=== PATIENT | female | born 2005 | race Caucasian/White ===

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

== ENCOUNTER → 2024-03-31 08:50 | Outpatient (BNVA) | payer MEDICAID, SELFPAY | PROVIDERS: PCP Nurse Practitioner Family; Visit Provider Nurse Practitioner Women's Health | DX: N92.6 Irregular menstruation, unspecified (principal); Z32.01 Encounter for pregnancy test, result positive | CPT/HCPCS: 81025; 84702; 86850; 86900 ==

== ENCOUNTER → 2024-04-11 13:23 | Outpatient (BNVA) | payer MEDICAID, SELFPAY | PROVIDERS: PCP Nurse Practitioner Family; Visit Provider Nurse Practitioner Women's Health | DX: Z36.87 Encounter for antenatal screening for uncertain dates (principal); R88.8 Abnormal findings in other body fluids and substances; Z3A.01 Less than 8 weeks gestation of pregnancy | CPT/HCPCS: 76817 ==

== ENCOUNTER → 2024-05-09 08:00 | Outpatient (BNVA) | payer MEDICAID, SELFPAY | PROVIDERS: PCP Nurse Practitioner Family; Visit Provider Nurse Practitioner Women's Health | DX: Z34.90 Encounter for supervision of normal pregnancy, unspecified, unspecified trimester (principal) | CPT/HCPCS: 76801; 80307; 84315; 85025; 86592; 86762; 86803; 86850; 86900; 87086; 87340; 87491; 87591; 87806 ==

== ENCOUNTER → 2024-05-22 10:30 | Outpatient (BNVA) | payer MEDICAID, BC, SELFPAY | PROVIDERS: PCP Nurse Practitioner Family; Visit Provider Obstetrics & Gynecology | DX: Z34.90 Encounter for supervision of normal pregnancy, unspecified, unspecified trimester (principal) | CPT/HCPCS: 82950; 84315; 87624 ==

== ENCOUNTER 2024-06-07 19:18 | Emergency (ER) | payer BC, MEDICAID, SELFPAY ==
[2024-06-07 19:26] VITALS: BP 109/46; PULSE 95; RESP 16; TEMP 36.7; O2SAT 100; BMI 45.7
[2024-06-07 20:00] VITALS: BP 107/76; PULSE 94; O2SAT 100
[2024-06-07 20:00] LABS: Basophils % 0.3 %; Eosinophils # 0.1 10^3/uL (0.0-0.8); Eosinophils % 1.2 %; Lymphocytes # 2.6 10^3/uL (0.8-4.8); Lymphocytes % 24.3 %; Mean Corpuscular HGB Conc 32.1 g/dL (30-55); Mean Corpuscular Hemoglobin 28.3 pg (27-33); Mean Corpuscular Volume 88.2 fl (85-98); Mean Platelet Volume 9.2 fL (7.4-10.4); Monocytes # 0.6 10^3/uL (0.2-0.9); Monocytes % 5.2 %; Neutrophils # 7.28 10^3/uL (1.8-7.7); Neutrophils % 68.4 %; Nucleated Red Blood Cells % 0 %; Platelet Count 325 10^3/cmm (157-399); Red Blood Count 4.42 10^6/uL (3.85-5.65); Red Cell Distribution Width 13.2 % (12.1-15.1); White Blood Count 10.64 10^3/uL (3.29-11.43)
--- NOTE | 2024-06-07 20:08 | W.ED.PREGNAN ---
HPI - General: Chief complaint: Vaginal Bleeding Stated complaint: 16 WKS Preg\Spotting Time Seen by Provider: 06/07/24 19:37 Source: patient Mode of arrival: ambulatory Limitations: no limitations History of Present Illness: 19-year-old female who is currently 16 weeks states she has had some slight spotting today. States its mainly when she wipes denies passing any large amounts of blood or clots. She has had some mild abdominal cramping denies any severe pain. States she has had a subchorionic hemorrhage with this . She denies any vomiting or diarrhea. Associated symptoms: Deny abdominal pain, headache(s), nausea or vomiting Related Data Home Medications Medication Instructions Recorded Confirmed PNV 153-FA 400 mcg-om3 35 mg-dha tab PO 03/31/24 05/22/24 25 mg-epa 5 mg-fish oil chew tablet ( Gummies) Allergies Allergy/AdvReac Type Severity Reaction Status Date / Time erythromycin base Allergy Severe redness, Verified 05/22/24 09:27 swelling Review of Systems Const: Denies: fever(s), chills, body aches or change in appetite ENMT: Denies: throat pain or dental pain Card: Denies: chest pain Resp: Denies: dyspnea GI: Denies: abdominal pain, nausea, vomiting or diarrhea : Reports: vaginal bleeding Musc: Denies: neck pain or back pain Skin/Breast: Denies: rash Neuro: Denies: headache(s) [facility] ED PFSH: Medical History Obesity (BMI 30-39.9) Insertion of implantable subdermal contraceptive No pertinent past medical history neghx: htn,dm,thyroid,dvt/pe PCP: Chelsy Zimmer Surgical History H/O knee surgery [facility] in [place], [place] Family History Sister Family history of thyroid problem Half sister Other Adopted Social History Smoking and tobacco/nicotine status: never used tobacco/nicotine Physical Exam Const: COMMON NORMALS: no acute distress, patient oriented x3 and healthy appearing HENMT: COMMON NORMALS: normocephalic and atraumatic HEAD & SCALP: normocephalic and atraumatic Eye: COMMON NORMALS: conjunctivae normal CONJUNCTIVA: Yes conjunctivae normal Neck/C-Spine: COMMON NORMALS: full ROM and supple Chest: COMMONS NORMALS: normal inspection of the chest Resp: COMMON NORMALS: normal respiratory effort GI: COMMON NORMALS: Normal to inspection, nondistended, normoactive bowel sounds present and non-tender Extremity: COMMON NORMALS: normal to inspection and full ROM Neuro: COMMON NORMALS: patient oriented x3, moves all extremities and no focal motor deficits Psych: COMMON NORMALS: mental status grossly normal, Normal thought process present and cooperative THOUGHT PROCESS: Normal thought process present Skin: COMMON NORMALS: no rashes or lesions noted and no wounds GENERAL SKIN EXAM: no rashes or lesions noted Course Vital Signs: Vital signs: Vital Signs Temperature 98.0 F 06/07/24 19:26 Pulse Rate 107 H 06/07/24 20:44 Respiratory Rate 16 06/07/24 19:26 Blood Pressure 115/89 06/07/24 20:44 Pulse Oximetry 98 06/07/24 20:44 Oxygen Delivery Me thod Room Air 06/07/24 20:00 MDM - OB/Uterine Contractions Medical Decision Making Patient presents here with a threatened miscarriage bedside ultrasound showed IUP consistent dates heart rate 146 she has been well-appearing here with minimal bleeding she is stable for discharge follow-up with OB return if worsening. Medical Records I reviewed the patient's medical records. Lab Data I reviewed the patient's lab results. 06/07/24 19:55 Laboratory Results WBC 10.64 10^3/uL (3.29-11.43) 06/07/24 19:55 RBC 4.42 10^6/uL (3.85-5.65) 06/07/24 19:55 Hgb 12.50 g/dL (11.27-16.99) 06/07/24 19:55 Hct 39.0 % (36-47) 06/07/24 19:55 MCV 88.2 fl (85-98) 06/07/24 19:55 MCH 28.3 pg (27-33) 06/07/24 19:55 MCHC 32.1 g/dL (30-55) 06/07/24 19:55 RDW 13.2 % (12.1-15.1) 06/07/24 19:55 Plt Count 325 10^3/cmm (157-399) 06/07/24 19:55 MPV 9.2 fL (7.4-10.4) 06/07/24 19:55 Neut % (Auto) 68.4 % 06/07/24 19:55 Lymph % (Auto) 24.3 % 06/07/24 19:55 [place] % (Auto) 5.2 % 06/07/24 19:55 Eos % (Auto) 1.2 % 06/07/24 19:55 Baso % (Auto) 0.3 % 06/07/24 19:55 Neut # (Auto) 7.28 10^3/uL (1.8-7.7) 06/07/24 19:55 Lymph # (Auto) 2.6 10^3/uL (0.8-4.8) 06/07/24 19:55 [place] # (Auto) 0.6 10^3/uL (0.2-0.9) 06/07/24 19:55 Eos # (Auto) 0.1 10^3/uL (0.0-0.8) 06/07/24 19:55 Baso # (Auto) 0.0 10^3/uL (0.0-0.1) 06/07/24 19:55 Nucleated RBC % (auto) 0 % 06/07/24 19:55 Nucleated RBCs # 0.0 /100WBC 06/07/24 19:55 Ser , Semi-Qnt 13828.00 mIU/mL 06/07/24 19:55 No radiology studies performed this visit Discharge Plan Discharge Patient Disposition: Home Clinical Impression: Threatened miscarriage Condition: Stable Prescriptions: No Action Gummies 400 mcg-35 mg- 25 mg-5 mg tablet,chewable PO Discharge Orders: Discharge ED (Routine); Ordered 06/07/24 Ordered By: Margaret Jason Referrals: Orlando Bradley MD [Physician] - 1-3 days Zimmer,DILCIA Whaley [Primary Care Provider] - Discharge Diet: Advance as tolerated Discharge Activity: Resume usual activity Patient Instructions: Threatened Miscarriage (ED) Stand Alone Forms: Work/School Release Coding Level of Care Code ED Poultry Culler for Chg Fwd
[2024-06-07 20:30] VITALS: BP 115/79; PULSE 93; O2SAT 100
[2024-06-07 20:44] VITALS: BP 115/89; PULSE 107; O2SAT 98
== END 2024-06-07 20:46 | disposition home or self-care (01) ==
PROVIDERS: Emergency Provider Emergency Medicine; PCP Nurse Practitioner Family
DX: O20.0 Threatened abortion (principal); Z3A.16 16 weeks gestation of pregnancy
CPT/HCPCS: 84702; 85025; 99283

== ENCOUNTER 2024-09-11 10:53 | Emergency (ER) | payer BC, MEDICAID, SELFPAY ==
--- NOTE | 2024-09-11 10:59 | W.ED.GENADLT ---
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 This was witnessed by a coworker and she was actually caught she never actually fell or hit her head. She is unsure if she completely lost consciousness. She is currently approximately 28 weeks gestation. She is complaining of intermittent spasming like pain in the right side of her uterus. She denies any recent dysuria urgency or frequency or illness. No vomiting or diarrhea. She has not had any vaginal discharge or fluid leakage. No hematuria no vaginal bleeding. Patient was treated for strep a few weeks ago completed the course of antibiotics and is asymptomatic at this time. Associated symptoms: Deny chest pain, dyspnea or rash Related Data Home Medications Medication Instructions Recorded Confirmed PNV 153-FA 400 mcg-om3 35 mg-dha tab PO 03/31/24 08/07/24 25 mg-epa 5 mg-fish oil chew tablet ( Gummies) Previous Rx's Medication Instructions Recorded dbrzihheir-nzsrfddvidjzr-nmxgecpx 1 cap PO Q8H PRN pain #30 caps 06/20/24 50 mg-300 mg-40 mg capsule (Fioricet) Allergies Allergy/AdvReac Type Severity Reaction Status Date / Time erythromycin base Allergy Severe redness, Verified 08/07/24 11:48 swelling Review of Systems Const: Denies: fever(s) or chills Card: Denies: chest pain Resp: Denies: dyspnea GI: Denies: abdominal pain : Denies: dysuria, urinary frequency or urinary urgency Musc: Denies: neck pain or back pain Skin/Breast: Denies: rash PFSH ED PFSH: Medical History Obesity (BMI 30-39.9) Insertion of implantable subdermal contraceptive No pertinent past medical history neghx: htn,dm,thyroid,dvt/pe PCP: Chelsy Zimmer Surgical History H/O knee surgery [facility] in [place], [place] Family History Sister Family history of thyroid problem Half sister Other Adopted Social History Smoking and tobacco/nicotine status: never used tobacco/nicotine Physical Exam Const: COMMON NORMALS: no acute distress GENERAL APPEARANCE: cooperative and comfortable ORIENTATION/CONSCIOUSNESS: Yes awake, Yes oriented to person, Yes oriented to place and Yes oriented to time HENMT: COMMON NORMALS: normocephalic, atraumatic and hearing grossly normal bilaterally HEAD & SCALP: normocephalic and atraumatic Resp: COMMON NORMALS: normal respiratory effort, No retractions, No use of accessory muscles and clear to auscultation bilaterally AUSCULTATION: clear to auscultation bilaterally Cardio: COMMON NORMALS: regular rate, regular rhythm and No murmurs present (Cardio) RATE: regular rate RHYTHM: regular rhythm GI: COMMON NORMALS: Soft to palpation and No hepatosplenomegaly present AUSCULTATION: Yes normoactive bowel sounds PALPATION: Yes Soft to palpation, No Tenderness to palpation present (GI), No Guarding due to palpation present (GI) and Yes No hepatosplenomegaly present Extremity: COMMON NORMALS: normal to inspection, capillary refill normal, no clubbing, cyanosis or edema, no calf tenderness and no pedal edema Neuro: SENSORIUM/ORIENTATION: Yes oriented to person, Yes oriented to place and Yes oriented to time Skin: COMMON NORMALS: no rashes or lesions noted GENERAL SKIN EXAM: no rashes or lesions noted Course Vital Signs: Vital signs: Vital Signs Pulse Rate 116 H 09/11/24 11:10 Respiratory Rate 16 09/11/24 11:10 Blood Pressure 129/81 09/11/24 11:10 Pulse Oximetry 99 09/11/24 11:10 Oxygen Delivery Me thod Room Air 09/11/24 11:10 MDM - General Adult Medical Decision Making Suspect she had a vasovagal episode concerned about the intermittent abdominal crampy pain localized to the right side of the apex of her uterus. Initial labs ordered CBC CMP and a UA. Will have patient brought to OB for monitoring. Lab Data 09/11/24 11:07 09/11/24 11:07 Laboratory Results WBC 12.39 10^3/uL (3.29-11.43) H 09/11/24 11:07 RBC 4.32 10^6/uL (3.85-5.65) 09/11/24 11:07 Hgb 11.80 g/dL (11.27-16.99) 09/11/24 11:07 Hct 37.5 % (36-47) 09/11/24 11:07 MCV 86.8 fl (85-98) 09/11/24 11:07 MCH 27.3 pg (27-33) 09/11/24 11:07 MCHC 31.5 g/dL (30-55) 09/11/24 11:07 RDW 14.1 % (12.1-15.1) 09/11/24 11:07 Plt Count 302 10^3/cmm (157-399) 09/11/24 11:07 MPV 9.2 fL (7.4-10.4) 09/11/24 11:07 Neut % (Auto) 75.6 % 09/11/24 11:07 Lymph % (Auto) 18.8 % 09/11/24 11:07 [place] % (Auto) 4.0 % 09/11/24 11:07 Eos % (Auto) 0.6 % 09/11/24 11:07 Baso % (Auto) 0.3 % 09/11/24 11:07 Neut # (Auto) 9.35 10^3/uL (1.8-7.7) H 09/11/24 11:07 Lymph # (Auto) 2.3 10^3/uL (0.8-4.8) 09/11/24 11:07 [place] # (Auto) 0.5 10^3/uL (0.2-0.9) 09/11/24 11:07 Eos # (Auto) 0.1 10^3/uL (0.0-0.8) 09/11/24 11:07 Baso # (Auto) 0.0 10^3/uL (0.0-0.1) 09/11/24 11:07 Nucleated RBC % (auto) 0 % 09/11/24 11:07 Nucleated RBCs # 0.0 /100WBC 09/11/24 11:07 Sodium 134 mmol/L (136-145) L 09/11/24 11:07 Potassium 4.2 mmol/L (3.5-5.1) 09/11/24 11:07 Chloride 102 mmol/L (98-107) 09/11/24 11:07 Carbon Dioxide 18 mmol/L (22-29) L 09/11/24 11:07 Anion Gap 18.2 (5-19) 09/11/24 11:07 BUN 12 mg/dL (6-20) 09/11/24 11:07 Creatinine 0.5 mg/dL (0.5-0.9) 09/11/24 11:07 GFR Calculation 155.7 mL/min (90-130) H 09/11/24 11:07 Glucose 100 mg/dL (65-115) 09/11/24 11:07 Calculated Osmolality 278 mOsm/kg (285-295) L 09/11/24 11:07 Calcium 9.1 mg/dL (8.5-10.5) 09/11/24 11:07 Total Bilirubin 0.2 mg/dL (0.15-1.2) 09/11/24 11:07 AST 8 U/L (0-32) 09/11/24 11:07 ALT 9 U/L (0-33) 09/11/24 11:07 Alkaline Phosphatase 106 U/L (35-105) H 09/11/24 11:07 Total Protein 7.1 g/dL (6.6-8.7) 09/11/24 11:07 Albumin 3.6 g/dL (3.5-5.2) 09/11/24 11:07 Globulin 3.5 g/dL (1.3-4.6) 09/11/24 11:07 No radiology studies performed this visit Discharge Plan Discharge Patient Disposition: Home Clinical Impression: Orthostatic syncope, Second trimester Condition: Stable Prescriptions: No Action Gummies 400 mcg-35 mg- 25 mg-5 mg tablet,chewable PO [id number]-frqcaeifyztjw-vagi [Fioricet] 50-300-40 mg capsule 1 cap PO Q8H PRN (Reason: pain) Qty: 30 0RF Discharge Orders: Discharge ED (Routine); Ordered 09/11/24 Ordered By: Kevin Arrington Referrals: [employer], [Primary Care Provider] - Discharge Diet: Usual diet Discharge Activity: Resume usual activity Patient Instructions: Opioid Safety, Pain Management Activity Restrictions/Additional Instructions: Thank you for choosing [facility] for your healthcare needs today. It is very important that you follow up as instructed or that you return to the Emergency Department should you have concerns or if your condition changes or worsens in any way. You were seen after a near syncopal episode likely due to vasovagal episode in the emergency room. You are being discharged from the emergency room for further evaluation in the OB department for intermittent abdominal pain that are suspicious for contractions. 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
[2024-09-11 11:10] VITALS: BP 129/81; PULSE 116; RESP 16; O2SAT 99
[2024-09-11 11:10] LABS: Basophils % 0.3 %; Eosinophils # 0.1 10^3/uL (0.0-0.8); Eosinophils % 0.6 %; Hematocrit 37.5 % (36-47); Lymphocytes # 2.3 10^3/uL (0.8-4.8); Lymphocytes % 18.8 %; Mean Corpuscular HGB Conc 31.5 g/dL (30-55); Mean Corpuscular Hemoglobin 27.3 pg (27-33); Mean Corpuscular Volume 86.8 fl (85-98); Mean Platelet Volume 9.2 fL (7.4-10.4); Monocytes # 0.5 10^3/uL (0.2-0.9); Neutrophils # 9.35 10^3/uL (1.8-7.7); Neutrophils % 75.6 %; Nucleated Red Blood Cells % 0 %; Platelet Count 302 10^3/cmm (157-399); Red Blood Count 4.32 10^6/uL (3.85-5.65); Red Cell Distribution Width 14.1 % (12.1-15.1); White Blood Count 12.39 10^3/uL (3.29-11.43)
[2024-09-11 11:26] LABS: Alanine Aminotransferase 9 U/L (0-33); Albumin Level 3.6 g/dL (3.5-5.2); Alkaline Phosphatase 106 U/L (35-105); Anion Gap 18.2 (5-19); Aspartate Amino Transferase 8 U/L (0-32); Blood Urea Nitrogen 12 mg/dL (6-20); Calcium 9.1 mg/dL (8.5-10.5); Carbon Dioxide 18 mmol/L (22-29); Chloride 102 mmol/L (98-107); Globulin 3.5 g/dL (1.3-4.6); Glomerular Filtration Rate 155.7 mL/min (90-130); Glucose 100 mg/dL (65-115); Osmolality Calculated 278 mOsm/kg (285-295); Potassium 4.2 mmol/L (3.5-5.1); Sodium 134 mmol/L (136-145); Total Bilirubin 0.2 mg/dL (0.15-1.2); Total Protein 7.1 g/dL (6.6-8.7)
== END 2024-09-11 11:18 | disposition home or self-care (01) ==
PROVIDERS: Emergency Provider Family Medicine
DX: R55 Syncope and collapse (principal)
CPT/HCPCS: 80053; 85025; 99283

== ENCOUNTER 2024-09-11 11:05 | Outpatient (CLI) | payer BC, MEDICAID, SELFPAY ==
[2024-09-11 11:18] VITALS: BP 111/63; PULSE 97; BMI 46.6
[2024-09-11 11:38] VITALS: BP 113/75; PULSE 99
[2024-09-11 11:58] VITALS: BP 117/65; PULSE 86
[2024-09-11 12:18] VITALS: BP 112/66; PULSE 91
== END 2024-09-11 12:35 | disposition home or self-care (01) ==
LOC: OPOB 11:07 → OBGYN 11:08
PROVIDERS: Absent Provider Obstetrics & Gynecology; Family Provider Obstetrics & Gynecology; Visit Provider Obstetrics & Gynecology
DX: O26.899 Other specified pregnancy related conditions, unspecified trimester (principal); Z3A.00 Weeks of gestation of pregnancy not specified; R55 Syncope and collapse
CPT/HCPCS: 59025; 99211

== ENCOUNTER → 2024-09-18 12:50 | Outpatient (BNVA) | payer BC, MEDICAID, SELFPAY | PROVIDERS: Visit Provider Obstetrics & Gynecology | DX: Z34.80 Encounter for supervision of other normal pregnancy, unspecified trimester (principal) | CPT/HCPCS: 82950; 84315; 85025 ==

== ENCOUNTER → 2024-09-26 12:25 | Outpatient (BNVA) | payer BC, MEDICAID, SELFPAY | PROVIDERS: Visit Provider Obstetrics & Gynecology | DX: Z34.90 Encounter for supervision of normal pregnancy, unspecified, unspecified trimester (principal) | CPT/HCPCS: 76816 ==

== ENCOUNTER → 2024-10-13 13:40 | Outpatient (BNVA) | payer BC, MEDICAID, SELFPAY | PROVIDERS: Visit Provider Obstetrics & Gynecology | DX: Z34.80 Encounter for supervision of other normal pregnancy, unspecified trimester (principal) | CPT/HCPCS: 84315 ==

== ENCOUNTER → 2024-11-06 15:10 | Outpatient (BNVA) | payer BC, MEDICAID, SELFPAY | PROVIDERS: Visit Provider Obstetrics & Gynecology | DX: Z34.80 Encounter for supervision of other normal pregnancy, unspecified trimester (principal) | CPT/HCPCS: 84315 ==

== ENCOUNTER 2024-11-13 18:23 | Outpatient (CLI) | payer BC, MEDICAID, SELFPAY ==
[2024-11-13 18:26] VITALS: BMI 48.6
[2024-11-13 18:48] VITALS: BP 119/77; PULSE 82
[2024-11-13 19:03] VITALS: BP 121/80; PULSE 70
[2024-11-13 19:18] VITALS: BP 120/81; PULSE 74
[2024-11-13 19:20] VITALS: BP 120/81; PULSE 71; RESP 15; TEMP 36.6; O2SAT 98
[2024-11-13 19:25] VITALS: TEMP 36.2
== END 2024-11-13 19:29 | disposition home or self-care (01) ==
LOC: OPOB 18:24 → OBGYN 18:24
PROVIDERS: Visit Provider Obstetrics & Gynecology
DX: O36.8190 Decreased fetal movements, unspecified trimester, not applicable or unspecified (principal); Z3A.00 Weeks of gestation of pregnancy not specified
CPT/HCPCS: 59025; 84315; 99211

== ENCOUNTER 2024-11-15 12:05 | Outpatient (CLI) | payer BC, MEDICAID, SELFPAY ==
[2024-11-15] VITALS (11 sets, daily range): BP systolic 102–118; BP diastolic 57–79; PULSE 73–109; RESP 16; O2SAT 98; BMI 47.9
[2024-11-15 12:43] LABS: Bilirubin Urine Negative (Negative); Blood Urine Negative (Negative); Glucose Urine UA Negative (Normal); Ketones Urine 1+ (Negative); Leukocyte Esterase Urine 2+ (Negative); Nitrate Urine Negative (Negative); Protein Urine 1+ (Negative); Specific Gravity, Urine 1.023 (1.005-1.030); Urine Appearance Turbid (CLEAR); Urine Color Dark Yellow (Yellow)
[2024-11-15 12:49] LABS: Bacteria Urine 4+ /hpf; Hyaline Casts Urine 9.91 /lpf; RBC Urine 21-50 /hpf (0-2); Squamous Epithelial Cell Urine 21-50 /hpf (0-5); WBC Urine >100 /hpf (0-5)
[2024-11-15 13:28] LABS: UA Slide Review UA Slide Review Perf
[2024-11-15 13:29] LABS: Add Urine Culture? Yes
== END 2024-11-15 14:48 | disposition home or self-care (01) ==
LOC: OPOB 12:06 → OBGYN 12:07
PROVIDERS: Visit Provider Obstetrics & Gynecology
DX: O26.899 Other specified pregnancy related conditions, unspecified trimester (principal); R10.9 Unspecified abdominal pain; Z3A.00 Weeks of gestation of pregnancy not specified
CPT/HCPCS: 59025; 81001; 87086; 99211

== ENCOUNTER 2024-11-15 20:48 | Outpatient (CLI) | payer BC, MEDICAID, SELFPAY ==
[2024-11-15 20:48] VITALS: BMI 48.2
[2024-11-15 21:14] VITALS: BP 111/65; PULSE 84
[2024-11-15 21:26] VITALS: BP 117/72; PULSE 85
[2024-11-15 21:36] VITALS: BP 125/67; PULSE 82
[2024-11-15 21:37] VITALS: TEMP 35.4
[2024-11-15 21:45] VITALS: BP 125/67; PULSE 82; RESP 16; TEMP 36.4; O2SAT 98
== END 2024-11-15 21:45 | disposition home or self-care (01) ==
LOC: OPOB 20:54 → OBGYN 20:54
PROVIDERS: Visit Provider Obstetrics & Gynecology
DX: O26.899 Other specified pregnancy related conditions, unspecified trimester (principal); Z3A.00 Weeks of gestation of pregnancy not specified; R10.9 Unspecified abdominal pain
CPT/HCPCS: 59025; 99211

== ENCOUNTER 2024-11-20 12:27 | Inpatient (IN) | payer BC, MEDICAID, SELFPAY ==
[2024-11-20] VITALS (50 sets, daily range): BP systolic 98–138; BP diastolic 58–92; PULSE 60–98; RESP 17–18; TEMP 36.6–36.7; O2SAT 91–100; BMI 47.7
[2024-11-20 12:38] LABS: Basophils % 0.2 %; Eosinophils # 0.2 10^3/uL (0.0-0.8); Eosinophils % 1.2 %; Hematocrit 35.5 % (36-47); Lymphocytes # 2.2 10^3/uL (0.8-4.8); Lymphocytes % 17.4 %; Mean Corpuscular HGB Conc 31.5 g/dL (30-55); Mean Corpuscular Hemoglobin 26.2 pg (27-33); Mean Corpuscular Volume 83.1 fl (85-98); Mean Platelet Volume 9.4 fL (7.4-10.4); Monocytes # 0.5 10^3/uL (0.2-0.9); Monocytes % 3.9 %; Neutrophils # 9.58 10^3/uL (1.8-7.7); Neutrophils % 76.8 %; Nucleated Red Blood Cells % 0 %; Platelet Count 302 10^3/cmm (157-399); Red Blood Count 4.27 10^6/uL (3.85-5.65); White Blood Count 12.47 10^3/uL (3.29-11.43)
[2024-11-20] MEDS: oxytocin 30 UNIT/500 ML BAG IV (12:57)
[2024-11-20] MEDS: dextrose 5%-lactated ringers 1,000 ML 125 ML IV ×2 (12:57→22:22)
--- NOTE | 2024-11-20 13:35 | PM.OBGYHP ---
Providers/Chief Complaint Admitting Physician: Orlando Bradley MD Primary VOCATIONAL TRAINING TEACHER: Orlando Bradley MD Primary Care Provider: Jovana Zimmer APN Chief Complaint: iol HPI VOCATIONAL TRAINING TEACHER History of Present Illness Bella Alexandra is a 19 year old female EDC November 24, 2024 at 39 w 3 d no complications admitted for elective induction of labor no c/o + movements POBHx: , female, 7 lbs 15 oz, [birth year] Present Details : 2 Para: 1 Labs Rubella: Immune RPR: Negative GBS: Negative Medications/Allergies Home Medications ?Medication ?Instructions ?Recorded ?Confirmed ?Last Taken ?Type PNV 153-FA 400 mcg-om3 35 mg-dha 1 tab PO DAILY 03/31/24 11/20/24 11/15/24 History 25 mg-epa 5 mg-fish oil chew tablet ( Gummies) Zofran 1 tab PO PRN PRN Nausea And 11/15/24 11/20/24 11/15/24 17:00 History Vomiting nitrofurantoin 1 cap PO 2XD 11/20/24 11/20/24 Unknown History monohydrate/macrocrystals 100 mg capsule (Macrobid) Allergies Allergy/AdvReac Type Severity Reaction Status Date / Time erythromycin base Allergy Severe redness, Verified 11/13/24 15:52 swelling PFSH VOCATIONAL TRAINING TEACHER PFSH: Medical History Obesity (BMI 30-39.9) Insertion of implantable subdermal contraceptive No pertinent past medical history neghx: htn,dm,thyroid,dvt/pe PCP: Chelsy Zimmer Surgical History H/O knee surgery [facility] in [place], [place] Family History Sister Family history of thyroid problem Half sister Other Adopted Social History Smoking and tobacco/nicotine status: never used tobacco/nicotine Other Female Reproductive History: Hx Age of Menarche: 10 Personal Safety: Do you feel safe at home: Yes Victim of physical abuse: No Victim of emotional abuse: No Victim of sexual abuse: No History History History 2 Term 1 0 Miscarriages/Ectopic 0 Living Children 1 Care MARLYS Calculator Estimated Delivery Date Method Current WG Current Estimate 11/24/24 LMP (Certain) 39w 5d Other Estimates 12/01/24 Ultrasound #1 38w 5d Specific Issues/Plans : SUBCHORIONIC HEMORRHAGE: poss ANUEL on u/s on 03/16/24, resolved today 05/09/24 HEADACHES: tylenol not working, fioricet sent for headache relief 06/20/24 HIDRADENITIS SUPPURATIVA (HS): dermatology referral sent 06/20/24 Vitals/I&O/Wt Last Vital Signs Temp 97.6 F 11/22/24 04:00 Pulse 54 L 11/22/24 04:00 Resp 18 11/22/24 04:00 BP 127/75 11/22/24 04:00 Pulse Ox 97 11/22/24 04:00 O2 Del Method Room Air 11/22/24 04:00 11/21/24 11/21/24 11/22/24 14:59 22:59 06:59 Intake Total 199.783 / 963.109 3005.501 / 1967.284 Output Total 400 / 400 Balance -200.217 / -767.112 0907.501 / 1567.284 Weight last 48 hrs Weight 261 lb Physical Exam Narrative: Weight 261 lbs; 5?2? VS normal General comfortable, awake, alert Lungs: clear Cor: RRR FH 38 cm, cephalic Cervix: 3 cm / 50% / -3 / posterior Ext: no edema External monitor: heart tracing good variability, + accelerations Urinary Catheter Management: Dietz: Cath Placed During This Visit: yes, but has since been removed by the nurse Reason for Continuing Indwelling Catheter: Decision to DC Catheter Urinary Catheter Date of Insertion: 11/20/24 Urinary Catheter Time of Insertion: 19:45 Date Urinary Catheter Removed: 11/21/24 Time Urinary Catheter Discontinued: 08:39 Data 11/21/24 21:25 Results Labs OB ([facility]): Obstetrics US 10/30/24 Blood Type A Positive 11/20/24 Antibody Screen Negative 11/20/24 Hct 32.2 % (36-47) L 11/21/24 Hgb 10.10 g/dL (11.27-16.99) L 11/21/24 Rho(D) Type Rh positive 11/20/24 Plt Count 259 10^3/cmm (157-399) 11/21/24 Hep Bs Antigen Non-reactive (NON-REACTIVE) 05/09/24 Hep Bs Ag Confirmation Not Reportable 05/09/24 Hep Bs Antibody < 3.5 (11.5-1000) L 08/03/24 Hepatitis C Antibody Non-reactive (Nonreactive) 05/09/24 Rubella IgG Antibody 35.8 IU/mL (0.0-10.0) H 08/03/24 RPR Nonreactive (Nonreactive) 05/09/24 HIV 1&2 Ab & HIV 1 Ag Non-reactive (Non-Reactiv) 05/09/24 C.trachomatis RNA (TMA) Not detected (NOT DETECTED) 05/09/24 N.gonorrhoeae RNA (TMA) Not detected (NOT DETECTED) 05/09/24 T. vaginalis Amp RNA Not detected (NOT DETECTED) 05/09/24 Chlamydia/GC Comment See note 05/09/24 Glucose 1 Hr 50 gm 94 mg/dL (85-140) 09/18/24 VZV IgG Antibody 1.91 S/CO 08/03/24 Ser , Semi-Qnt 29713.00 mIU/mL 06/07/24 HCG, Qual Positive (Negative) H 03/31/24 Urine Opiates Screen Negative ng/mL (Negative) 05/09/24 Ur Barbiturates Screen Negative ng/mL (Negative) 05/09/24 Ur Phencyclidine Scrn Negative ng/mL (Negative) 05/09/24 Ur Amphetamines Screen Negative ng/mL (Negative) 05/09/24 U Benzodiazepines Scrn Negative ng/mL (Negative) 05/09/24 Urine Cocaine Screen Negative ng/mL (Negative) 05/09/24 U Marijuana (THC) Screen Negative ng/mL (Negative) 05/09/24 Micro Urine Specimen 11/15/24 Pap Smear Interpret See note 05/22/24 A&P Assessment and plan (1) : 39 w 3 d Fetus reassuring Admitted for elective induction of labor Plan start Pitocin per protocol Qualifiers: Weeks of gestation: 11 weeks Qualified Code(s): Z3A.11 - 11 weeks gestation of PDMP PDMP Reviewed: Not Reviewed Attestations Medical Necessity Statement*: patient at 39 w 3 d, admitted for induction of labor Coding Level of Care Code Acute Code for Chg Fwd Diagnoses 11 weeks gestation of Z3A.11 Weeks of gestation: 11 weeks
[2024-11-20] MEDS: lactated ringers 1,000 ML 999 ML IV (18:05)
[2024-11-20] MEDS: ROPivacaine syringe 100 MG/50 ML SYRINGE 10 MG EPIDURAL ×2 (18:40→22:37)
--- NOTE | 2024-11-20 18:44 | ANES.PREANE2 ---
Pre-Anesthetic Assessment Height/Weight: Height 1.57 m Weight 118.388 kg Pulse Resp BP Pulse Ox O2 Del Method 70 17 132/61 99 Room Air 11/20/24 18:42 11/20/24 12:27 11/20/24 18:42 11/20/24 18:42 11/20/24 12:22 Epidural Familial anesthetic complications: Noen Social No alcohol and No tobacco Exam alert, oriented x 3, clear to auscultation bilaterally and regular rate & rhythm Metabolic Morbid Obesity and Thyroid Disease Anesthetic Plan ASA status: 3 Anesthesia: Regional (specify below) Risk of > 500 ml blood loss (7ml/kg in children): Yes, adequate IV access and fluids planned Medications/Allergies Home Medications ?Medication ?Instructions ?Recorded ?Confirmed ?Last Taken ?Type PNV 153-FA 400 mcg-om3 35 mg-dha 1 tab PO DAILY 03/31/24 11/13/24 11/15/24 History 25 mg-epa 5 mg-fish oil chew tablet ( Gummies) Zofran 1 tab PO PRN PRN Nausea And 11/15/24 11/20/24 11/15/24 17:00 History Vomiting nitrofurantoin 1 cap PO 2XD 11/20/24 11/20/24 Unknown History monohydrate/macrocrystals 100 mg capsule (Macrobid) Allergies Allergy/AdvReac Type Severity Reaction Status Date / Time erythromycin base Allergy Severe redness, Verified 11/13/24 15:52 swelling Current Medications Generic Name Dose Route Start Last Admin Trade Name Freq PRN Reason Stop Dose Admin Dextrose/Lactated Ringer's 1,000 mls @ 125 mls/hr 11/20/24 12:30 11/20/24 12:57 Dextrose 5%-Lactated Ringers IV 125 mls/hr .Q8H ANUEL Administration Oxytocin 30 unit in 500 mls @ 1 mls/hr 11/20/24 12:45 11/20/24 17:15 Pitocin IV 11 milliunit/min .Q24H ANUEL 11 mls/hr Titration Protocol 1 MILLIUNIT/MIN Lactated Ringer's 1,000 mls @ 999 mls/hr 11/20/24 17:52 11/20/24 18:05 Lactated Ringers IV 999 mls/hr .Q1H1M PRN Administration See label comments PFSH Anesthesia Medical History Obesity (BMI 30-39.9) Insertion of implantable subdermal contraceptive No pertinent past medical history neghx: htn,dm,thyroid,dvt/pe PCP: Chelsy Zimmer Surgical History H/O knee surgery [facility] in [place], [place] Family History Sister Family history of thyroid problem Half sister Other Adopted Social History Smoking and tobacco/nicotine status: never used tobacco/nicotine Female Reproductive History : 2 Data Anesthesia 11/20/24 12:15 Short CBC 11/20/24 Range/Units 12:15 WBC 12.47 H (3.29-11.43) 10^3/uL Hgb 11.20 L (11.27-16.99) g/dL Hct 35.5 L (36-47) % MCV 83.1 L (85-98) fl Plt Count 302 (157-399) 10^3/cmm Neut % (Auto) 76.8 % Neut # (Auto) 9.58 H (1.8-7.7) 10^3/uL Blood Bank 11/20/24 12:15 Blood Type A Positive Rho(D) Type Rh positive Antibody Screen Negative Cardiac Studies: No Data to Display
--- NOTE | 2024-11-20 18:44 | ANES.PROC ---
Anesthesia Procedures Procedure/Date: 11/20/24 Epidural: Time Out Performed: Yes Consents Signed: Procedure Consent Consent: requested by attending/covering physician, from patient, from other, risks and benefits reviewed and patient agrees to proceed Lumbar Level: L3-L4 Epidural position: sitting Epidural procedure: sterile prep of area, 1% lidocaine to numb the area, 18 g needle, negative for paresthesia passed, neg for paresthesia, test dose given, 1.5% xylocaine 1:200k epi (5 cc), 0.2% Ropivacaine bolus ml (5), placed PCEA, no systemic response, sterile dressing applied, L.U.D. no apparent complications and 0.2% Ropiavacaine @ mls/hr (10) Additional Comments: PAMELA at 7 cm, threaded to 13 cm patient did report sharp pain while threading catheter at needle insertion point (no parasthesias). Went away with further advancement
[2024-11-20] MEDS: ondansetron 2 mg/ML SDV 2 mL 4 MG IVP (19:56)
[2024-11-20] MEDS: metoclopramide 5 mg/mL SDV 2 mL 10 MG IV (22:22)
[2024-11-21] VITALS (31 sets, daily range): BP systolic 88–145; BP diastolic 52–88; PULSE 58–102; RESP 15–18; TEMP 36.6–37; O2SAT 97–99
[2024-11-21] MEDS: ROPivacaine syringe 100 MG/50 ML SYRINGE 10 MG EPIDURAL ×2 (03:37→07:52)
[2024-11-21] MEDS: dextrose 5%-lactated ringers 1,000 ML 125 ML IV (06:22)
[2024-11-21] MEDS: ondansetron 2 mg/ML SDV 2 mL 4 MG IVP (07:56)
[2024-11-21] MEDS: oxytocin 30 UNIT/500 ML BAG 600 UNIT IV (09:33)
--- NOTE | 2024-11-21 11:05 | PM.DELIVERY ---
Delivery Note: Date of delivery: November 21, 2024 Pre-delivery diagnoses: 39 w 3 d induction of labor Post-delivery diagnoses: 39 w 3 d induction of labor vaginal delivery Procedure: induction of labor vaginal delivery Op report anesthesia: Epidural Delivering Physician: Orlando Bradley MD Estimated blood loss (mL): 300 Findings: , vigorous Cord gases obtained Normal placenta and cord No episiotomy / lacerations EBL: 300 cc No complications Pre-Delivery Course: normal labor course Delivery: vaginal Post-Delivery Status: good History History History 2 Term 1 0 Miscarriages/Ectopic 0 Living Children 1 A&P Assessment and plan (1) Vaginal delivery: PDMP PDMP Reviewed: Not Reviewed Coding Level of Care Code Acute Code for Chg Fwd Diagnoses Vaginal delivery O80 Time Spent (min) 60
[2024-11-21] MEDS: acetaminophen 325 mg Tablet 650 MG PO (13:33)
[2024-11-21] MEDS: benzocaine-menthol 78 gm Canister 1 SPRAY TOPICAL (15:07)
[2024-11-21] MEDS: ibuprofen 800 mg tablet PO ×2 (15:07→21:06)
[2024-11-21] MEDS: docusate sodium 100 mg Capsule PO (21:06)
[2024-11-21 21:48] LABS: Hematocrit 32.2 % (36-47); Mean Corpuscular HGB Conc 31.4 g/dL (30-55); Mean Corpuscular Hemoglobin 26.7 pg (27-33); Mean Corpuscular Volume 85.2 fl (85-98); Mean Platelet Volume 9.8 fL (7.4-10.4); Platelet Count 259 10^3/cmm (157-399); Red Blood Count 3.78 10^6/uL (3.85-5.65); White Blood Count 13.32 10^3/uL (3.29-11.43)
--- NOTE | 2024-11-22 02:00 | ANE.PACU2 ---
Inpatient post-anesthesia follow up: Airway intact: Yes Vital signs: Temperature 98.0 F Pulse Rate 73 Respiratory Rate 18 Blood Pressure 122/73 Pulse Oximetry 98 Oxygen Delivery Me thod Room Air Oxygen Flow Rate Fraction of Inspir ed Oxygen Hydration adequate: Yes Nausea and vomiting: No Pain level: 1 Mental status: Baseline Epidural Start/End: Epidural Start Date: 11/20/24 Epidural Start Time: 18:25 Epidural End Date: 11/21/24 Epidural End Time: 09:56
[2024-11-22 04:00] VITALS: BP 127/75; PULSE 54; RESP 18; TEMP 36.4; O2SAT 97
[2024-11-22 09:50] VITALS: BP 122/80; PULSE 70; RESP 18; TEMP 36.6
[2024-11-22 13:00] VITALS: BP 122/73; PULSE 73; RESP 18; TEMP 36.6; TEMP 36.7; O2SAT 98
--- NOTE | 2024-11-22 13:05 | PM.OBGYDC ---
Discharge Providers HEAVY MOBILE EQUIPMENT REPAIRER Date of Admission: 11/20/24 12:27 Date of Discharge: 11/22/24 Attending Provider at Admission: Orlando Bradley MD Attending Provider at Discharge: Orlando Bradley MD Consults: none Primary HEAVY MOBILE EQUIPMENT REPAIRER: Orlando Bradley MD Primary Care Provider: Jovana Zimmer APN Diagnoses at Discharge Discharge Diagnosis (1) Vaginal delivery: Details from hospital stay: 19 y.o. EDC November 24, 2024 at 39 w 3 d no complications admitted for elective induction of labor patient progressed to complete dilatation fetus was reassuring throughout patient delivered vaginally without any complications. There were no lacerations She did well and was discharged to home on the first day Status: Acute Reason for Visit Reason for Visit: iol Brief History: 19 y.o. EDC November 24, 2024 at 39 w 3 d no complications admitted for elective induction of labor Hospital Course Hospital Course 19 y.o. EDC November 24, 2024 at 39 w 3 d no complications admitted for elective induction of labor patient progressed to complete dilatation fetus was reassuring throughout patient delivered vaginally without any complications. There were no lacerations She did well and was discharged to home on the first day Information Peripartum Data: Delivery Method: Vaginal Laceration description: None Episiotomy description: None complications: none Physical Exam Narrative: afebrile, VS normal comfortable, awake, alert Abd: soft, nontender. fundus firm Ext: no edema; nontender Urinary Catheter Management: Dietz: Cath Placed During This Visit: yes, but has since been removed by the nurse Reason for Continuing Indwelling Catheter: Decision to DC Catheter Urinary Catheter Date of Insertion: 11/20/24 Urinary Catheter Time of Insertion: 19:45 Date Urinary Catheter Removed: 11/21/24 Time Urinary Catheter Discontinued: 08:39 History History History 2 Term 1 0 Miscarriages/Ectopic 0 Living Children 1 Discharge Data Studies Completed and Pending Laboratory Results WBC 13.32 10^3/uL (3.29-11.43) H 11/21/24 21: RBC 3.78 10^6/uL (3.85-5.65) L 11/21/24: Hgb 10.10 g/dL (11.27-16.99) L 11/21/24: Hct 32.2 % (36-47) L 11/21/24: MCV 85.2 fl (85-98) 11/21/24: MCH 26.7 pg (27-33) L 11/21/24: MCHC 31.4 g/dL (30-55) 11/21/24: RDW 15.0 % (12.1-15.1) 11/21/24: Plt Count 259 10^3/cmm (157-399) 11/21/24 21: MPV 9.8 fL (7.4-10.4) 11/21/24 21: Neut % (Auto) 76.8 % 11/20/24 12:15 Lymph % (Auto) 17.4 % 11/20/24 12:15 Carolina % (Auto) 3.9 % 11/20/24 12:15 Eos % (Auto) 1.2 % 11/20/24 12:15 Baso % (Auto) 0.2 % 11/20/24 12:15 Neut # (Auto) 9.58 10^3/uL (1.8-7.7) H 11/20/24 12:15 Lymph # (Auto) 2.2 10^3/uL (0.8-4.8) 11/20/24 12:15 Carolina # (Auto) 0.5 10^3/uL (0.2-0.9) 11/20/24 12:15 Eos # (Auto) 0.2 10^3/uL (0.0-0.8) 11/20/24 12:15 Baso # (Auto) 0.0 10^3/uL (0.0-0.1) 11/20/24 12:15 Nucleated RBC % (auto) 0 % 11/20/24 12:15 Nucleated RBCs # 0.0 /100WBC 11/20/24 12:15 Blood Type A Positive 11/20/24 12:15 Rho(D) Type Rh positive 11/20/24 12:15 Antibody Screen Negative 11/20/24 12:15 Procedures Performed induction of labor vaginal delivery Vitals Last Vital Signs Temp 98.0 F 11/22/24 13:00 Pulse 73 11/22/24 13:00 Resp 18 11/22/24 13:00 BP 122/73 04/02/25 13:00 Pulse Ox 98 11/22/24 13:00 O2 Del Method Room Air 11/22/24 13:00 Results Labs OB ([facility]): Obstetrics US 10/30/24 Blood Type A Positive 11/20/24 Antibody Screen Negative 11/20/24 Hct 32.2 % (36-47) L 11/21/24 Hgb 10.10 g/dL (11.27-16.99) L 11/21/24 Rho(D) Type Rh positive 11/20/24 Plt Count 259 10^3/cmm (157-399) 11/21/24 Hep Bs Antigen Non-reactive (NON-REACTIVE) 05/09/24 Hep Bs Ag Confirmation Not Reportable 05/09/24 Hep Bs Antibody < 3.5 (11.5-1000) L 08/03/24 Hepatitis C Antibody Non-reactive (Nonreactive) 05/09/24 Rubella IgG Antibody 35.8 IU/mL (0.0-10.0) H 08/03/24 RPR Nonreactive (Nonreactive) 05/09/24 HIV 1&2 Ab & HIV 1 Ag Non-reactive (Non-Reactiv) 05/09/24 C.trachomatis RNA (TMA) Not detected (NOT DETECTED) 05/09/24 N.gonorrhoeae RNA (TMA) Not detected (NOT DETECTED) 05/09/24 T. vaginalis Amp RNA Not detected (NOT DETECTED) 05/09/24 Chlamydia/GC Comment See note 05/09/24 Glucose 1 Hr 50 gm 94 mg/dL (85-140) 09/18/24 VZV IgG Antibody 1.91 S/CO 08/03/24 Ser , Semi-Qnt 66755.00 mIU/mL 06/07/24 HCG, Qual Positive (Negative) H 03/31/24 Urine Opiates Screen Negative ng/mL (Negative) 05/09/24 Ur Barbiturates Screen Negative ng/mL (Negative) 05/09/24 Ur Phencyclidine Scrn Negative ng/mL (Negative) 05/09/24 Ur Amphetamines Screen Negative ng/mL (Negative) 05/09/24 U Benzodiazepines Scrn Negative ng/mL (Negative) 05/09/24 Urine Cocaine Screen Negative ng/mL (Negative) 05/09/24 U Marijuana (THC) Screen Negative ng/mL (Negative) 05/09/24 Micro Urine Specimen 11/15/24 Pap Smear Interpret See note 05/22/24 Discharge Plan Discharge Patient Disposition: Home Prescriptions: Continued Gummies 400 mcg-35 mg- 25 mg-5 mg tablet,chewable 1 tab PO DAILY Zofran 1 tab PO PRN PRN (Reason: Nausea And Vomiting) nitrofurantoin monohyd/m-cryst [Macrobid] 100 mg Capsule 1 cap PO 2XD Discharge Orders: Discharge Order (Routine); Ordered 11/22/24 Ordered By: Orlando Bradley Referrals: Natalia Barrientos NP [Nurse Practitioner] - 01/02/25 8:45 am Discharge Diet: Usual diet Discharge Activity: Increase activity as tolerated Patient Instructions: Depression (DC), Bleeding (DC), Preeclampsia and Eclampsia After Delivery (GEN), Hemorrhage (DC), OB Discharge Report, OB Food/Drug Interaction Guide, OB Care at Home, Opioid Safety, OB Home Care, OB Vaginal Deliveries - [facility] Discharge Attestations HEAVY MOBILE EQUIPMENT REPAIRER Time Spent in Discharge Care*: less than 30 min Coding Level of Care Code Acute Code for Chg Fwd Diagnoses Vaginal delivery O80
== END 2024-11-22 13:14 | disposition home or self-care (01) | DRG 807 ==
LOC: OPOB 11-21 05:08 → OBGYN 11-21 05:08
PROVIDERS: Admitting Provider Obstetrics & Gynecology; PCP Nurse Practitioner Family; Visit Provider Obstetrics & Gynecology
DX: O80 Encounter for full-term uncomplicated delivery (principal); Z37.0 Single live birth; Z3A.39 39 weeks gestation of pregnancy
CPT/HCPCS: 36415; 51702; 59025; 59409; 85025; 85027; 86850; 86900; 96374; J2405; J2590; J2765; J2795; J7120; J7121; J9999

== ENCOUNTER → 2025-02-22 07:40 | Outpatient (BNVA) | payer BC, MEDICAID, SELFPAY | PROVIDERS: PCP Nurse Practitioner Family; Visit Provider Nurse Practitioner Women's Health | DX: Z30.017 Encounter for initial prescription of implantable subdermal contraceptive (principal) | CPT/HCPCS: 81025 ==

== ENCOUNTER 2025-08-12 11:20 | Emergency (ER) | payer BC, MEDICAID, SELFPAY ==
[2025-08-12 11:26] VITALS: BP 109/84; PULSE 100; RESP 17; TEMP 36.7; O2SAT 100; BMI 35.1
--- OUTSIDE RECORDS SUMMARY | 2025-08-12 11:26 | XMS_ITS | Patient Health Record ---
Author Organization [facility] Address [address] [place] [address] Care Team Providers Care Rod Piler Name Role Phone [facility] Primary Care Provider [facility] Unavailable Unavailable Allergies Allergen (clinical drug ingredient) Drug/Non Drug Allergy documented on EMR Reaction Allergy Type Onset Date Status erythromycin Erythromycin Unknown Drug Allergy A ctive Results Component Value Reference Range Notes Influenza A/B - 43147 Reviewed date:09/22/2024 03:16:14 PM Interpretation: Performing Lab: Notes/Report: A positive B negative Reason For Referral No Information Medications Medication SIG (Take, Route, Frequency, Duration) Notes Start Date End Date Status Effexor XR 75 MG Capsule Extended Release 24 Hour 1 capsule with food Orally once a day in am; Duration: 30 days Not-Taking Venlafaxine HCl ER 37.5 mg Capsule Extended Release 24 Hour TAKE ONE CAPSULE BY MOUTH with food ONCE EVERY MORNING; Duration: 30 Not-Taking Levothyroxine Sodium 88 MCG Tablet 1 tablet in the morning on an empty stomach Orally Once a day; Duration: 90 days Not-Taking Levothyroxine Sodium 75 MCG Tablet 1 tablet in the morning on an empty stomach Orally Once a day; Duration: 30 day(s) Not-Taking Zepbound 7.5 MG/0.5ML Solution Auto-injector 7.5 mg Subcutaneous weekly; Duration: 30 days 05/29/2025 Active Singulair 10 MG Tablet 1 tablet Orally O nce a day; Duration: 30 days Not-Takin g Zepbound 2.5 MG/0.5ML Solution Auto-injector 2.5 mg Subcutaneous weekly; Duration: 30 days Not-Taking Cetirizine HCl 10 MG Tablet 1 tablet Orally Once a day; Duration: 30 12/12/2024 Not-Taking Norgestim-Eth Estrad Triphasic 0.18/0.215/0.25 MG-25 MCG Tablet 1 tablet Orally Once a day; Duration: 28 days Not-Takin g Ondansetron HCl 4 MG Tablet 1 tablet Orally Once a day; Duration: 30 days 09/21/2024 Not-Takin g hydrOXYzine HCl 25 MG Tablet 1 to 2 tabs Orally Once a day q evening prn anxiety; sleep; Duration: 30 days Not-Taking Ondansetron 4 MG Tablet Disintegrating 1 tablet on the tongue and allow to dissolve Orally q 4 hours prn nausea; Duration: 30 days 01/25/2024 Not-Taking Clindamycin Phosphate 1 % Lotion APPLY A THIN FILM TO AFFECTED AREAS UNDER ARMS AND BILATERAL GROIN ONE TO TWO TIMES DAILY NEEDED External; Duration: 30 Days Active Albuterol Sulfate HFA 108 (90 Base) MCG/ACT Aerosol Solution 2 puffs Inhalation four times a day prn; Duration: 30 days 12/13/2023 Not-Taking Maxitrol 3.5-62390-8.1 Suspension 1 drop into affected eye Ophthalmic Four times a day; Duration: 7 days 12/06/2023 Not-Taking Fluticasone Propionate 50 MCG/ACT Suspension 1 spray in each nostril Nasally Once a day; Duration: 30 days 12/06/2023 Not-Taking 28-0.8 MG Tablet 1 tablet Orall y Once a day; Duration: 30 days Active Cetirizine HCl 10 MG Tablet 1 tablet Orally Once a day; Duration: 30 12/06/2023 Not-Taking Immunizations Vaccine Route Administration Date Status Comme nts Flucelvax Trivalent, Syringe 0.5 mL, PF Unknown 024 Refused Flucelvax Trivalent, Syringe 0.5 mL, PF Unknown 025 Refused Social History Tobacco Use: Social History Observation Description Date Details (start date - stop date) Never Smoker NA - NA Social History Depression Screening Social Info Question Answer Notes depression screening findings Findings Negative (0 -4) PHQ-9 Little interest or p irwin in doing things Not at all Feeling down, depressed, or hopeless Not at all Trouble falling or staying asleep, or sleeping t oo much Not at all Feeling tired or having little energy Not at all Poor appetite or overeating Not at all Feeling bad about yourself, or that you are a failure, or have let yourself or your family down Not at all Trouble concentrating on thi ngs, such as reading the newspaper or watching television Not at all Moving or speaking so slowly that other people could have noticed. Or the opposite ? being so fidgety or restless that you have been moving around a lot more than usual Not at all Thoughts that you would be b juhi off , or of hurting yourself in some way Not at all Total Score 0 Drugs/Alcohol: Social Info Question Answer Notes Alcohol Screen (Audit-C) Did you have a drink containing alcohol in the past year? No Points 0 Interpretation Negative Drugs Have you used drugs other than those for medical reasons in the past 12 months? No Tobacco Use: Social Info Question Answer Notes Tobacco Control (Standard) Tobacco use: Nonsmoker Section Notes: Depression screen completed 08/31/2023 score 0 Depression screen completed 08/31/2023 score 0 Depression screen completed 08/31/2023 score 0 Depression screen completed 08/31/2023 score 0 Depression screen completed 08/31/2023 score 0, PHQ9 05/29/2025 Problems Problem Type SNOMED Code ICD Code Onset Dates Problem Status W/U Status Risk Notes Problem Bacterial infectious disease (26234889) Other specified bacterial agents as the cause of diseases classified elsewhere (B96.89) Active confirmed Problem Hidradenitis suppurativa (42371055) Hidradenitis suppurativa (L73.2) Active confirmed Problem Acute vaginitis (48112203) Acute vaginitis (N76.0) Active confirmed Problem Anxiety (08440605) Anxiety (F41.9) Active confirmed Problem Lower abdominal pain (94532923) Lower abdominal pain (R10.30) Active confirmed Problem Sinusitis (64271492) Sinusitis (J32.9) Active confirmed Problem Amenorrhea (23468246) Amenorrhea (N91.2) Active confirmed Problem Obesity (222361085) Obesity (BMI 30-39.9) (E66.9) Active confirmed Problem Depression (034305570) Depression (F32.9) Active confirmed Problem Body mass index 40+ - severely obese (269729221) BMI 45.0-49.9, adult (Z68.42) Active confirmed Problem Febrile illness (650832158) Febrile illness (R50.9) Active confirmed Problem Acquired hypothyroidism (687497987) Acquired hypothyroidism (E03.9) Active confirmed Problem Obesity (285828192) Obesity (E66.9) Active confirmed Problem Depression (555462423) Other depression (F32.89) Active confirmed Problem Morbid obesity (559064006) Morbid obesity (E66.01) Active confirmed Problem Lipid screening (481697969) Lipid screening (Z13.220) Active confirmed Problem Thyroid disorder screening (875480207) Thyroid disorder screen (Z13.29) Active confirmed Problem Environmental allergy (982964486) Environmental allergies (Z91.09) Active confirmed Vital Signs Heart Rate 57 /min 05/29/2025 Temperature 97.5 degrees Fahrenheit 05/29/2025 Respiratory Rate 18 /min 05/29/2025 Height-cm 157.48 cm 05/29/2025 Oximetry 98 % 05/29/2025 Blood pressure diastolic 83 mm Hg 05/29/2025 Weight-kg 92.53 kg 05/29/2025 Height 62 in 05/29/2025 Blood pressure systolic 114 mm Hg 05/29/2025 Weight 204 lbs 05/29/2025 BMI 37.31 kg/m2 05/29/2025 Encounters Encounter Location Date Provider Diagnosis [facility] [address] [address] 05/29/2025 Jovana Zimmer Hidradenitis suppurativa L73.2 ; Obesity (BMI 30-39.9) E66.9 ; Depression screen Z13.31 ; Encounter for immunization Z23 and Immunization not carried out because of patient refusal Z28.21 [facility] [address] [address] 09/22/2024 Jovana Zimmer Nausea R11.0 ; Cough R05.9 ; Influenza A J10.1 and Pharyngitis J02.9 [facility] [address] [address] 09/21/2024 Jovana Zimmer Nausea R11.0 [facility] [address] [address] 07/23/2025 [facility] Obesity (BMI 30-39.9 ) E66.[address] [place] [address] 06/21/2025 [facility] Obesity (BMI 30-39.9 ) E66.9 [facility] [address] [place] [address] 03/02/2025 [facility] Abdominal pain R10.9 [place] [address] [place] [address] 12/21/[address] [place] [address] 12/18/[address] [place] [address] 12/12/[address] [place] [address] 10/03/2024 [facility] Assessments Encounter Date Diagnosis (ICD Code) Assessment Notes Treatment Notes Treatment Clinical Notes Section Notes 09/21/2024 Nausea (ICD-10 - R11.0) Script called to [facility] in [facility] per [facility] [employer] request. 09/22/2024 Nausea (ICD-10 - R11.0) flu swab; positive for flu a zofran 09/22/2024 Cough (ICD-10 - R05.9) 03/02/2025 Abdominal pain (ICD-10 - R10.9) 05/29/2025 Hidradenitis suppurativa (ICD-10 - L73.2) doxycycline derm depomedrol/deca dron im 05/29/2025 Obesity (BMI 30-39.9) (ICD-10 - E66.9) zepbound 06/21/2025 Obesity (BMI 30-39.9) (ICD-10 - E66.9) 07/23/2025 Obesity (BMI 30-39.9) (ICD-10 - E66.9) 05/29/2025 Depression screen (ICD-10 - Z13.31) 09/22/2024 Influenza A (ICD-10 - J10.1) tamiflu 09/22/2024 Pharyngitis (ICD-10 - J02.9) z cain 05/29/2025 Encounter for immunization (ICD-10 - Z23) 05/29/2025 Immunization not carried out because of patient refusal (ICD-10 - Z28.21) 09/22/2024 Other Questions asked and answered; discharged to home. 05/29/2025 Other Questions asked and answered; discharged to home. Plan Of Treatment Pending Test Test Name Order Date US Abdomen Limited-[id number] 03/02/2025 Insurance Providers Payer Name Payer Address Payer Phone Subscriber Number Group Number Insured Name Patient Relationship to Insured Coverage Start Date Coverage End Date [employer] [place] Medicaid Replacement [address] [address] [place] [address] [id number] Bella Alexandra Self - patient is the insured Medications Administered Medication Instructions Date of Administration Dosage Notes DEPO-Medrol 05/29/2025 40 mg [facility] [phone] 3-01 pt tolerated well/instructed to wait 20 min dexAMETHasone 05/29/2025 4 mg [facility] 89549-2 423-00 pt tolerated well/instructed to wait 20 min Rocephin 08/07/2022 1 g [facility] [phone] pt tolerated well/instructed to wait 20 min Medical (General) History Medical History History ICD Code Hypothyroidism seasonal allergies Surgical History Surgery Date(Month/Year) left knee arthroscopy meniscus repair 20 19 Hospitalization History Reason Date(Month/Year) childbirth 2020 childbirth 2024
--- NOTE | 2025-08-12 11:39 | USR_ITS ---
PROCEDURE INFORMATION: Exam: US Abdomen, Limited; Right Upper Quadrant Exam date and time: 08/12/2025 11:52 AM Age: 20 years old Clinical indication: Abdominal pain; Additional info: Right upper quadrant abdominal pain, acholic stools TECHNIQUE: Imaging protocol: Real time ultrasound of the abdomen with image documentation. Limited exam focused on the right upper quadrant. COMPARISON: [place] [id number] 10/30/2024 2:57 PM FINDINGS: Liver: The liver measures 14.6 cm in the midclavicular plane. No mass. Gallbladder: Multiple shadowing small gallstones in the partially contracted gallbladder. The gallbladder wall measures 2 mm. No pericholecystic fluid. Biliary ducts: The common bile duct measures 4 mm. No ductal calculi as visualized. Pancreas: The pancreas head, neck and proximal body are unremarkable. The remainder of the gland is obscured by bowel gas. Right kidney: The right kidney measures 9.5 x 4.5 x 5.4 cm. The renal cortex measures 0.9 cm. Unremarkable. A brief color Doppler examination of the right kidney was performed showing normal color shifts. Aorta: The distal infrarenal abdominal aorta measures 1.0 cm. Portal venous: Antegrade retropancreatic splenic vein by color Doppler. The main portal vein measures 0.7 cm. A brief color and pulsed Doppler examination of the portal vein was performed showing normal hepatopedal flow. 49.5 cm/sec. IVC: Unremarkable inferior cavoatrial junction. US/US gall bladder [id number] IMPRESSION: Cholelithiasis.
[2025-08-12 11:46] LABS: Hematocrit 43.9 % (36-47); Hemoglobin 14.30 g/dL (11.27-16.99); Mean Corpuscular HGB Conc 32.6 g/dL (30-55); Mean Corpuscular Hemoglobin 28.7 pg (27-33); Mean Corpuscular Volume 88.2 fl (85-98); Nucleated Red Blood Cells % 0 %; Platelet Count 305 10^3/cmm (157-399); Red Blood Count 4.98 10^6/uL (3.85-5.65); White Blood Count 10.40 10^3/uL (3.29-11.43)
--- NOTE | 2025-08-12 11:47 | ED_ITS ---
HPI - Abdominal Pain 2 General: Chief Complaint: Abdominal Pain Stated Complaint: gall bladder pain Time Seen by Provider: 08/12/25 11:38 Source: patient Mode of arrival: ambulatory Limitations: no limitations History of Present Illness: 20-year-old female states that she has b een having abdominal pain off and on she states for 6 to 8 months. States she believes it has been her gallbladder states she had worsening pain last night that lasted roughly 4 to 5 hours pain has improved currently she has some nausea denies any vomiting or diarrhea. Related Data Home Medications ?Medication ?Instructions ?Recorded ?Confirmed PNV 153-FA 400 mcg-om3 35 mg-dha 1 tab PO DAILY 08/12/25 25 mg-epa 5 mg-fish oil chew tablet ( Gummies) tirzepatide (weight loss) 7.5 7.5 mg SUBCUT DAILY 07/2408/12/25 mg/0.5 mL subcutaneous pen injector (Zepbound) Previous Rx's ?Medication ?Instructions ?Recorded ondansetron 4 mg disintegrating 4 mg PO Q6H PRN nausea and 08/12/25 tablet vomiting #14 tabs Allergies Allergy/AdvReac Type Severity Reaction Status Date / Time erythromycin base Allergy Severe redness, Verified 02/22/25 08:30 swelling Review of Systems 2 GI: Reports: abdominal pain PFSH ED 2 PFSH: Medical History (Updated 08/12/25 @ 12:13 by Margaret Jason MD) Vaginal delivery Obesity (BMI 30-39.9) Insertion of implantable subdermal contraceptive No pertinent past medical history neghx: htn,dm,thyroid,dvt/pe PCP: [facility] Surgical History [place] teeth extracted H/O knee surgery [facility] in [place], In Family History Sister Family history of thyroid problem Half sister Other Adopted Social History Smoking and tobacco/nicotine status: never used tobacco/nicotine Physical Exam 2 Const: COMMON NORMALS: no acute distress, patient oriented x3 and healthy appearing HENMT: COMMON NORMALS: normocephalic and atraumatic HEAD & SCALP: n ormocephalic and atraumatic Neck/C-Spine: COMMON NORMALS: full ROM and supple Chest: COMMONS NORMALS: normal inspection of the chest Resp: COMMON NORMALS: normal respiratory effort Cardio: COMMON NORMALS: regular rate RATE: regular rate GI: COMMON NORMALS: Normal to inspection, nondistended, normoactive bowel sounds present, Soft to palpation, non-tender and no masses PALPATION: Yes Soft to palpation Extremity: COMMON NORMALS: normal to inspection and full ROM Neuro: COMMON NORMALS: patient oriented x3, moves all extremities and no focal motor deficits Psych: COMMON NORMALS: mental status grossly normal, Normal thought process present and cooperative THOUGHT PROCESS: Normal thought process present Skin: COMMON NORMALS: no rashes or lesions noted and no wounds GENERAL SKIN EXAM: no rashes or lesions noted Course 2 Vital Signs: Vital signs: Vital Signs Temperature 98.1 F 08/12/25 11:26 Pulse Rate 100 08/12/25 11:26 Respiratory Rate 17 08/12/25 11:26 Blood Pressure 109/84 08/12/25 11:26 Pulse Oximetry 100 08/12/25 11:26 Oxygen Delivery Me thod Room Air 08/12/25 11:26 MDM - Abdominal Pain Medical Decision Making Patient presents here with abdominal pains been going on for months differential includes appendicitis, pancreatitis, cholecystitis. Patient has no signs of the above she is currently pain-free labs showed no significant abnormality white count was normal ultrasound did show Stephanie lithiasis no signs of cholecystitis she is likely having biliary colic will prescribe her Zofran for home we will refer her to surgery. I did go over all of this with the patient she is to return if worsening she understands agrees to plan Medical Records I reviewed the patient's medical records. Lab Data I reviewed the patient's lab results. 08/12/25 11:33 08/12/25 11:33 Labs/Radiology: Radiology Impressions Gallbladder Ultrasound 08/12/25 11:39 IMPRESSION: Cholelithiasis. Laboratory Results WBC 10.40 10^3/uL (3.29-11.43) 08/12/25 11:33 RBC 4.98 10^6/uL (3.85-5.65) 08/12/25 11:33 Hgb 14.30 g/dL (11.27-16.99) 08/12/25 11:33 Hct 43.9 % (36-47) 08/12/25 11:33 MCV 88.2 fl (85-98) 08/12/25 11:33 MCH 28.7 pg (27-33) 08/12/25 11:33 MCHC 32.6 g/dL (30-55) 08/12/25 11:33 RDW 12.4 % (12.1-15.1) 08/12/25 11:33 Plt Count 305 10^3/cmm (157-399) 08/12/25 11:33 MPV 9.5 fL (7.4-10.4) 08/12/25 11:33 Neut % (Auto) 69.7 % 08/12/25 11:33 Lymph % (Auto) 23.0 % 08/12/25 11:33 [place] % (Auto) 5.5 % 08/12/25 11:33 Eos % (Auto) 1.3 % 08/12/25 11:33 Baso % (Auto) 0.3 % 08/12/25 11:33 Neut # (Auto) 7.26 10^3/uL (1.8-7.7) 08/12/25 11:33 Lymph # (Auto) 2.4 10^3/uL (0.8-4.8) 08/12/25 11:33 [place] # (Auto) 0.6 10^3/uL (0.2-0.9) 08/12/25 11:33 Eos # (Auto) 0.1 10^3/uL (0.0-0.8) 08/12/25 11:33 Baso # (Auto) 0.0 10^3/uL (0.0-0.1) 08/12/25 11:33 Nucleated RBC % (auto) 0 % 08/12/25 11:33 Nucleated RBCs # 0.0 /100WBC 08/12/25 11:33 Sodium 138 mmol/L (136-145) 08/12/25 11:33 Potassium 3.7 mmol/L (3.5-5.1) 08/12/25 11:33 Chloride 104 mmol/L (98-107) 08/12/25 11:33 Carbon Dioxide 22 mmol/L (22-29) 08/12/25 11:33 Anion Gap 15.7 (5-19) 08/12/25 11:33 BUN 19 mg/dL (6-20) 08/12/25 11:33 Creatinine 0.7 mg/dL (0.5-0.9) 08/12/25 11:33 GFR Calculation 104.6 mL/min (90-130) 08/12/25 11:33 Glucose 97 mg/dL (65-115) 08/12/25 11:33 Calculated Osmolality 288 mOsm/kg (285-295) 08/12/25 11:33 Calcium 9.5 mg/dL (8.5-10.5) 08/12/25 11:33 Total Bilirubin 0.5 mg/dL (0.15-1.2) 08/12/25 11:33 AST 17 U/L (0-32) 08/12/25 11:33 ALT 33 U/L (0-33) 08/12/25 11:33 Alkaline Phosphatase 78 U/L (35-105) 08/12/25 11:33 Total Protein 8.4 g/dL (6.6-8.7) 08/12/25 11:33 Albumin 4.7 g/dL (3.5-5.2) 08/12/25 11:33 Globulin 3.7 g/dL (1.3-4.6) 08/12/25 11:33 Lipase 30 U/L (13-60) 08/12/25 11:33 HCG, Qual Negative (Negative) 08/12/25 11:33 Urine Color Dark yellow (Yellow) A 08/12/25 11:33 Urine Appearance Clear (CLEAR) 08/12/25 11:33 Urine pH 5.5 (5-7) 08/12/25 11:33 Ur Specific [place] 1.035 (1.005-1.030) H 08/12/25 11:33 Urine Protein 1+ (Negative) A 08/12/25 11:33 Urine Glucose (UA) Negative (Normal) 08/12/25 11:33 Urine Ketones Trace (Negative) 08/12/25 11:33 Urine Blood Negative (Negative) 08/12/25 11:33 Urine Nitrate Negative (Negative) 08/12/25 11:33 Urine Bilirubin Negative (Negative) 08/12/25 11:33 Urine Urobilinogen 1.0 mg/dL (Negative) 08/12/25 11:33 Ur Leukocyte Esterase Trace (Negative) A 08/12/25 11:33 Urine RBC 6-10 /hpf (0-2) 08/12/25 11:33 Urine WBC 0-5 /hpf (0-5) 08/12/25 11:33 Ur Squamous Epith Cells 6-10 /hpf (0-5) 08/12/25 11:33 Amorphous Sediment Not Reportable 08/12/25 11:33 Urine Bacteria 1+ /hpf (NONE) H 08/12/25 11:33 Hyaline Casts 3.71 /lpf 08/12/25 11:33 All radiology interpretation(s) finalized by discharge Discharge Plan Discharge Patient Disposition: Home Clinical Impression: Gallstones Abdominal pain Qualifiers: Abdominal location: right upper quadrant Qualified Code(s): R10.11 - Right upper quadrant pain Condition: Stable Prescriptions: New ondansetron 4 mg tablet,disintegrating 4 mg PO Q6H PRN (Reason: nausea and vomiting) Qty: 14 0RF No Action Gummies 400 mcg-35 mg- 25 mg-5 mg tablet,chewable 1 tab PO DAILY Zepbound 7.5 mg/0.5 mL pen injector 7.5 mg SUBCUT DAILY Discharge Orders: Discharge ED (Routine); Ordered 08/12/25 Ordered By: Margaret Jason Referrals: Zoltan Harden MD [Physician, General Surgery] Zimmer,DILCIA Whaley [Primary Care Provider, Nurse Practitioner] Discharge Diet: Advance as tolerated Discharge Activity: Resume usual activity Patient Instructions: Biliary Colic (ED), Gallstones (ED), Abdominal Pain (ED) Print Language: Greenlandic Coding Level of Care Code ED [employer]er for [employer]
[2025-08-12 11:48] LABS: Glucose Urine UA Negative (Normal); Nitrate Urine Negative (Negative)
[2025-08-12 11:53] LABS: Add Urine Microscopic? YES
[2025-08-12 11:55] LABS: HCG, Serum Qual Negative (Negative)
[2025-08-12 12:03] LABS: Alanine Aminotransferase 33 U/L (0-33); Albumin Level 4.7 g/dL (3.5-5.2); Alkaline Phosphatase 78 U/L (35-105); Anion Gap 15.7 (5-19); Aspartate Amino Transferase 17 U/L (0-32); Blood Urea Nitrogen 19 mg/dL (6-20); Calcium 9.5 mg/dL (8.5-10.5); Carbon Dioxide 22 mmol/L (22-29); Chloride 104 mmol/L (98-107); Globulin 3.7 g/dL (1.3-4.6); Glucose 97 mg/dL (65-115); Lipase 30 U/L (13-60); Osmolality Calculated 288 mOsm/kg (285-295); Potassium 3.7 mmol/L (3.5-5.1); Sodium 138 mmol/L (136-145); Total Protein 8.4 g/dL (6.6-8.7)
[2025-08-12 12:08] LABS: Specific Gravity, Urine 1.035 (1.005-1.030)
[2025-08-12] MEDS: ondansetron 2 mg/ML SDV 2 mL 4 MG IVP (12:15)
[2025-08-12 12:25] VITALS: BP 104/76; PULSE 85; O2SAT 98
== END 2025-08-12 12:25 | disposition home or self-care (01) ==
PROVIDERS: Family Medicine; Emergency Provider Emergency Medicine; PCP Nurse Practitioner Family
DX: K80.20 Calculus of gallbladder without cholecystitis without obstruction (principal)
CPT/HCPCS: 36415; 76705; 80053; 81001; 83690; 84703; 85025; 96374; 99284; J2405